=== PATIENT | male | born 1940 | race Caucasian/White ===

== ENCOUNTER 2020-04-12 04:22 | Day surgery (SDC) | payer OTHER ==
[2020-04-10 11:09] VITALS: BMI 35.4
[~2020-04-12 04:22] MED LIST: BUPIVACAINE HCL/PF 0.75% 10 ML VIAL NR ONE; IOHEXOL 180 MG/1 ML ML IJ ONE
[2020-04-12] MEDS ORDERED: BUPIVACAINE HCL/PF 0.75% 10 ML VIAL ONE ×2 (07:22→12:59)
[2020-04-12] MEDS ORDERED: TRIAMCINOLONE ACET 40MG/1ML VIAL ONE (07:22)
[2020-04-12] MEDS ORDERED: DEXAMETHASONE SOD PHOSPHATE/PF 10 MG/ML SDV ONE (07:22)
[2020-04-12] MEDS ORDERED: LIDOCAINE HCL/PF 1% SDV 5ML VIAL ONE (07:22)
[2020-04-12] MEDS ORDERED: LIDOCAINE HCL 1% PRESERVATIVE FREE - 30ML VIAL INF ONE (10:51)
[2020-04-12] MEDS ORDERED: IOHEXOL 180 MG/1 ML ML IJ ONE (10:56)
[2020-04-12] MEDS ORDERED: BUPIVACAINE HCL/PF 0.75% 10 ML VIAL NR ONE (10:57)
[2020-04-12 14:20] VITALS: TEMP 98.6
[2020-04-12 14:42] VITALS: BP 140/68; PULSE 52
== END 2020-04-12 12:00 | disposition home or self-care (01) ==
LOC: JASU-SURG 04:22
PROVIDERS: ATTEND Pain Medicine Pain Medicine
PROC: 3E0T33Z Introduction of Anti-inflammatory into Peripheral Nerves and Plexi, Percutaneous Approach (ICD-10-PCS; 2020-04-12)
PROC: 3E0T3BZ Introduction of Anesthetic Agent into Peripheral Nerves and Plexi, Percutaneous Approach (ICD-10-PCS; principal; 2020-04-12 11:30)
DX: M47.16 Other spondylosis with myelopathy, lumbar region (principal)
CPT/HCPCS: 76000-TC-FY

== ENCOUNTER 2020-05-10 04:18 | Day surgery (SDC) | payer OTHER ==
[2020-05-08 09:57] VITALS: BMI 35.4
[2020-05-10] MEDS ORDERED: LIDOCAINE HCL/PF 1% SDV 5ML VIAL ONE (07:20)
[2020-05-10] MEDS ORDERED: BUPIVACAINE HCL/PF 0.25% (2.5MG/ML) 10 ML VIAL ONE (07:23)
[2020-05-10] MEDS ORDERED: TRIAMCINOLONE ACET 40MG/1ML VIAL ONE (07:23)
[2020-05-10] MEDS ORDERED: DEXAMETHASONE SOD PHOSPHATE/PF 10 MG/ML SDV ONE (07:23)
[2020-05-10] MEDS ORDERED: BUPIVACAINE HCL/PF 0.75% 10 ML VIAL ONE (07:23)
[2020-05-10] MEDS ORDERED: IOHEXOL 180 MG/1 ML ML IJ ONE (08:47)
[2020-05-10] MEDS ORDERED: LIDOCAINE HCL 1% PRESERVATIVE FREE - 30ML VIAL IJ ONE ×2 (08:49)
[2020-05-10] MEDS ORDERED: BUPIVACAINE HCL/PF 0.75% 10 ML VIAL NR ONE (08:50)
[2020-05-10 09:16] VITALS: BP 139/70; TEMP 98.2
[2020-05-10] MEDS ORDERED: SODIUM CHLORIDE 0.9% P/F 10 ML VIAL IJ ONE (09:49)
[2020-05-10 11:28] VITALS: PULSE 50
== END 2020-05-10 09:45 | disposition home or self-care (01) ==
LOC: JASU-SURG 04:18
PROVIDERS: ATTEND Pain Medicine Pain Medicine
PROC: BR16YZZ Fluoroscopy of Lumbar Facet Joint(s) using Other Contrast (ICD-10-PCS; 2020-05-10)
PROC: 3E0T3BZ Introduction of Anesthetic Agent into Peripheral Nerves and Plexi, Percutaneous Approach (ICD-10-PCS; principal; 2020-05-10 08:30)
DX: M47.816 Spondylosis without myelopathy or radiculopathy, lumbar region (principal)
CPT/HCPCS: 76000-TC-FY

== ENCOUNTER 2020-07-12 04:22 | Day surgery (SDC) | payer OTHER ==
[2020-07-11 12:56] VITALS: BMI 34.5
[2020-07-12] MEDS ORDERED: BUPIVACAINE HCL/PF 0.75% 10 ML VIAL ONE (07:30)
[2020-07-12] MEDS ORDERED: LIDOCAINE HCL/PF 1% SDV 5ML VIAL ONE (11:05)
[2020-07-12] MEDS ORDERED: LIDOCAINE HCL/PF 2% SDV 5ML VIAL ONE (12:08)
[2020-07-12 14:13] VITALS: BP 141/62; PULSE 68; TEMP 98.8
== END 2020-07-12 13:45 | disposition home or self-care (01) ==
LOC: JASU-SURG 04:22
PROVIDERS: ATTEND Pain Medicine Pain Medicine
PROC: BR16YZZ Fluoroscopy of Lumbar Facet Joint(s) using Other Contrast (ICD-10-PCS; 2020-07-12)
PROC: 3E0T3TZ Introduction of Destructive Agent into Peripheral Nerves and Plexi, Percutaneous Approach (ICD-10-PCS; principal; 2020-07-12 12:16)
DX: M47.816 Spondylosis without myelopathy or radiculopathy, lumbar region (principal)
CPT/HCPCS: 76000-TC-FY